=== PATIENT | male | born 1990 | race Caucasian/White ===

== ENCOUNTER 2017-01-04 10:33 | Emergency (ER) | payer OTHER ==
[~2017-01-04] VITALS: Ht 182.9 cm; Wt 82.0 kg
[~2017-01-04 10:33] MED LIST: CEPHALEXIN500 MG OR; NO HOME MEDS; NORCO1 TA1 PO
[2017-01-04 10:55] VITALS: BP 168/94
== END 2017-01-04 11:00 | disposition home or self-care (01) | DRG 951 ==
LOC: ED 10:33
DX: Z02.89 Encounter for other administrative examinations (principal)

== ENCOUNTER 2018-02-10 20:19 | Emergency (ER) | payer SELFPAY ==
[~2018-02-10] VITALS: Ht 182.9 cm; Wt 85.6 kg
[2018-02-10] MEDS ORDERED: RITALIN10 MG PO (20:33)
[2018-02-10 21:14] LABS: HEMATOCRIT 48.6 % (39.0-50.0); HEMOGLOBIN 17.3 g/dl (14.0-18.0); IMMATURE GRANULOCYTES 0.8 % (0.0-1.0); MEAN CORPUSCULAR HGB 30.6 pG CALC (26.0-32.0); MEAN CORPUSCULAR HGB CONC 35.6 g/L CALC (32.0-36.0); NEUT# 6.41 thou/uL (1.82-7.42); RED BLOOD COUNT 5.65 mill/uL (4.70-6.10); RED CELL DISTRI WIDTH 13.1 % (11.5-15.5)
[2018-02-10 21:25] LABS: ALBUMIN 4.8 g/dL (3.2-5.0); ALKALINE PHOSPHATASE 103 u/l (38-126); AMYLASE 42 u/l (30-110); ANION GAP 19 (6-22 (CALC)); BILIRUBIN, TOTAL 0.9 mg/dL (0.0-1.4); BUN 17 mg/dL (9-20); BUN/CREATININE RATIO 21 (12-20 (CALC)); CARBON DIOXIDE 26 mmol/l (22-30); CHLORIDE 102 mmol/l (95-108); CREATININE 0.8 mg/dL (0.7-1.3); GFR > 60 ML/MIN (>=60 (CALC)); GFR FOR AFR.AMER. > 60 ML/MIN (>=60 (CALC)); LIPASE 163 u/l (23-300); POTASSIUM 3.8 mmol/l (3.5-5.1); SGOT/AST 36 u/l (17-59); SGPT/ALT 54 u/l (21-72); SODIUM 143 mmol/l (137-146); TOTAL PROTEIN 7.9 g/dL (6.3-8.2)
[2018-02-10] MEDS ORDERED: ONDANSETRON4 MG PO (23:17)
[2018-02-10 23:30] VITALS: BP 122/82
== END 2018-02-10 23:45 | disposition home or self-care (01) | DRG 392 ==
LOC: ED 20:19
PROVIDERS: Emergency Medicine
DX: R10.31 Right lower quadrant pain (principal); B34.9 Viral infection, unspecified; R10.13 Epigastric pain
CPT/HCPCS: Q9967

== ENCOUNTER → 2018-12-07 | Outpatient (REF) ==
[~2018-12-07] MED LIST changes: +ONDANSETRON4 MG PO; +RITALIN10 MG PO
== END | disposition home or self-care (01) | DRG 951 ==
LOC: LAB 14:43
DX: Z02.1 Encounter for pre-employment examination (principal)

== ENCOUNTER 2019-01-16 19:15 | Emergency (ER) | payer OTHER ==
[~2019-01-16] VITALS: Ht 177.8 cm; Wt 90.0 kg
[2019-01-16 20:00] LABS: HEMOGLOBIN 15.7 g/dl (14.0-18.0); IMMATURE GRANULOCYTES 0.5 % (0.0-5.0); MEAN CELL VOLUME 86.4 fL CALC (80.0-100.0); MEAN CORPUSCULAR HGB 30.1 pG CALC (26.0-32.0); MEAN CORPUSCULAR HGB CONC 34.9 g/L CALC (32.0-36.0); NEUT# 8.09 thou/uL (1.82-7.42); RED BLOOD COUNT 5.21 mill/uL (4.70-6.10); RED CELL DISTRI WIDTH 12.9 % (11.5-15.5)
[2019-01-16] MEDS ORDERED: DOXYCYCL HYC100 MG PO (20:35)
[2019-01-16 21:02] VITALS: BP 130/72
== END 2019-01-16 21:02 | disposition home or self-care (01) | DRG 195 ==
LOC: ED 19:15
PROVIDERS: Family Medicine
DX: J18.9 Pneumonia, unspecified organism (principal)

== ENCOUNTER 2019-10-07 | Emergency (ER) | payer SELFPAY ==
[~2019-10-07] MED LIST changes: +DOXYCYCL HYC100 MG PO
[2019-10-07 20:06] LABS: HEMATOCRIT 45.4 % (39.0-50.0); HEMOGLOBIN 15.8 g/dl (14.0-18.0); IMMATURE GRANULOCYTES 0.5 % (0.0-5.0); MEAN CELL VOLUME 87.6 fL CALC (80.0-100.0); MEAN CORPUSCULAR HGB 30.5 pG CALC (26.0-32.0); MEAN CORPUSCULAR HGB CONC 34.8 g/L CALC (32.0-36.0); NEUT# 7.73 thou/uL (1.82-7.42); RED BLOOD COUNT 5.18 mill/uL (4.70-6.10)
[2019-10-07] MEDS ORDERED: AMOXICILLIN500 MG PO (20:30)
== END 2019-10-07 20:55 | disposition home or self-care (01) | DRG 153 ==
PROVIDERS: Family Medicine
DX: J01.90 Acute sinusitis, unspecified (principal)

== ENCOUNTER 2021-03-14 05:47 | Emergency (ER) | payer SELFPAY ==
[~2021-03-14] VITALS: Ht 177.8 cm; Wt 81.0 kg
[~2021-03-14 05:47] MED LIST changes: +AMOXICILLIN500 MG PO
[2021-03-14] MEDS ORDERED: TESSALON PERLE100 MG PO (06:47)
[2021-03-14 07:22] VITALS: BP 167/90
== END 2021-03-14 07:30 | disposition home or self-care (01) | DRG 153 ==
LOC: ED 05:47
DX: J06.9 Acute upper respiratory infection, unspecified (principal); J02.9 Acute pharyngitis, unspecified; Z20.822 Contact with and (suspected) exposure to COVID-19

== ENCOUNTER 2021-10-11 05:12 | Emergency (ER) | payer SELFPAY ==
[~2021-10-11] VITALS: Ht 177.8 cm; Wt 81.0 kg
[~2021-10-11 05:12] MED LIST changes: +TESSALON PERLE100 MG PO
[2021-10-11] MEDS ORDERED: LORTAB 1010 MG PO (06:10)
[2021-10-11] MEDS ORDERED: CORTISPORIN OTI10 ML AS (06:10)
[2021-10-11] MEDS ORDERED: AMOXICILLIN500 MG PO (06:10)
[2021-10-11 06:14] VITALS: BP 149/83
== END 2021-10-11 06:25 | disposition home or self-care (01) | DRG 156 ==
LOC: ED 05:12
PROC: 09C4XZZ Extirpation of Matter from Left External Auditory Canal, External Approach (ICD-10-PCS; principal; 2021-10-11)
DX: T16.2XXA Foreign body in left ear, initial encounter (principal); X58.XXXA Exposure to other specified factors, initial encounter; H60.92 Unspecified otitis externa, left ear

== ENCOUNTER 2021-10-19 23:22 | Emergency (ER) | payer SELFPAY ==
[~2021-10-19] VITALS: Ht 177.8 cm; Wt 86.4 kg
[~2021-10-19 23:22] MED LIST changes: +CORTISPORIN OTI10 ML AS; +LORTAB 1010 MG PO
[2021-10-20] MEDS ORDERED: ALLEGRA-D 2424 HOUR PO (00:31)
[2021-10-20 01:32] VITALS: BP 165/105
== END 2021-10-20 01:48 | disposition home or self-care (01) | DRG 156 ==
LOC: ED 23:22
PROC: 3E1B38Z Irrigation of Ear using Irrigating Substance, Percutaneous Approach (ICD-10-PCS; principal; 2021-10-20)
DX: H61.22 Impacted cerumen, left ear (principal)

== ENCOUNTER 2022-03-07 20:26 | Emergency (ER) | payer SELFPAY ==
[2022-03-07] VITALS (7 sets, daily range): BP systolic 123–146; BP diastolic 78–105
[~2022-03-07] VITALS: Ht 177.8 cm; Wt 95.4 kg
[~2022-03-07 20:26] MED LIST changes: +ALLEGRA-D 2424 HOUR PO
[2022-03-07 22:18] LABS: IMMATURE GRANULOCYTES 0.6 % (0.0-5.0); MEAN CELL VOLUME 88.5 fL CALC (80.0-100.0); MEAN CORPUSCULAR HGB 30.7 pG CALC (26.0-32.0); MEAN CORPUSCULAR HGB CONC 34.7 g/dL CAL (32.0-36.0); NEUT# 8.55 thou/uL (1.82-7.42); RED BLOOD COUNT 5.83 mill/uL (4.70-6.10); RED CELL DISTRI WIDTH 13.3 % (11.5-15.5)
[2022-03-07 22:28] LABS: HEMATOCRIT 51.6 % (39.0-50.0); HEMOGLOBIN 17.9 g/dl (14.0-18.0)
[2022-03-07 22:32] LABS: ALBUMIN 5.1 g/dL (3.2-5.0); ALKALINE PHOSPHATASE 119 u/l (38-126); AMYLASE 72 u/l (30-110); ANION GAP 15 (6-22 (CALC)); BILIRUBIN, TOTAL 0.9 mg/dL (0.0-1.4); BUN 16 mg/dL (9-20); BUN/CREATININE RATIO 15 (12-20 (CALC)); CARBON DIOXIDE 26 mmol/l (22-30); CHLORIDE 104 mmol/l (95-108); GFR FOR AFR.AMER. > 60 ML/MIN (>=60 (CALC)); GFR OTHER RACES > 60 ML/MIN (>=60 (CALC)); LIPASE 90 u/l (23-300); POTASSIUM 3.9 mmol/l (3.5-5.1); SGOT/AST 50 u/l (17-59); SODIUM 141 mmol/l (137-146); TOTAL PROTEIN 8.8 g/dL (6.3-8.2)
[2022-03-07 23:58] LABS: URINE BILIRUBIN - DIPSTICK NEGATIVE (NEGATIVE); URINE BLOOD DIPSTICK SMALL (NEGATIVE); URINE COLOR YELLOW; URINE GLUCOSE - DIPSTICK NEGATIVE (NEGATIVE); URINE KETONE NEGATIVE (NEGATIVE); URINE LEUK ESTERASE NEGATIVE (NEGATIVE); URINE NITRITE - DIPSTICK NEGATIVE (Negative); URINE PROTEIN - DIPSTICK 100 mg/dL (NEG-TRACE); URINE SPECIFIC GRAVITY >=1.030; URINE UROBILINOGEN - DIPSTICK 0.2 E.U./dL (0.2)
[2022-03-07 23:59] LABS: URINE SQUAMOUS EPITHELIAL CELL FEW EPI/hpf (0-FEW)
[2022-03-08] MEDS ORDERED: IMODIUM2 MG PO (00:15)
[2022-03-08] MEDS ORDERED: PROMETHAZINE HY25 M1 PO (00:15)
[2022-03-08 00:34] VITALS: BP 123/78
== END 2022-03-08 01:03 | disposition home or self-care (01) | DRG 392 ==
LOC: ED 20:26
PROVIDERS: Family Medicine
DX: A08.4 Viral intestinal infection, unspecified (principal)
CPT/HCPCS: Q9967

== ENCOUNTER 2023-10-17 12:48 | Emergency (ER) | payer SELFPAY ==
[~2023-10-17] VITALS: Ht 177.8 cm; Wt 95.0 kg
[~2023-10-17 12:48] MED LIST changes: +IMODIUM2 MG PO; +PROMETHAZINE HY25 M1 PO
[2023-10-17] MEDS ORDERED: TAM75CAP PO (14:54)
[2023-10-17 15:03] VITALS: BP 139/86
== END 2023-10-17 15:03 | disposition home or self-care (01) | DRG 195 ==
LOC: ED 12:48
DX: J10.1 Influenza due to other identified influenza virus with other respiratory manifestations (principal); Z20.822 Contact with and (suspected) exposure to COVID-19

== ENCOUNTER 2024-11-18 12:31 | Emergency (ER) | payer SELFPAY ==
[~2024-11-18] VITALS: Ht 177.8 cm; Wt 90.7 kg
[~2024-11-18 12:31] MED LIST changes: +TAM75CAP PO
[2024-11-18] MEDS ORDERED: LIDOcaine HCl 1% (Local Anesth.) 20 ML VIAL IM STA (12:42)
[2024-11-18 12:43] VITALS: BP 152/100
[2024-11-18] MEDS ORDERED: cefTRIAXone SODIUM 1 GM/VIAL SDV IM ONE (12:45)
[2024-11-18 12:46] VITALS: BP 149/98
[2024-11-18] MEDS ORDERED: VIBRAMYCIN100 M2 PO (12:46)
[2024-11-18 13:00] VITALS: BP 135/86
[2024-11-18 13:17] VITALS: BP 135/86
== END 2024-11-18 13:27 | disposition home or self-care (01) | DRG 603 ==
LOC: ED 12:31
DX: L03.211 Cellulitis of face (principal); I10 Essential (primary) hypertension
CPT/HCPCS: J0696